=== PATIENT | male | born 1990 | race Hispanic/Latino ===

== ENCOUNTER 2020-05-01 14:50 | Emergency (ER) | payer SELFPAY ==
[2020-05-01 16:07] VITALS: BP 145/91
== END 2020-05-01 19:00 | disposition left against medical advice (07) ==
LOC: ED 14:50
DX: R45.851 Suicidal ideations (principal); Z53.21 Procedure and treatment not carried out due to patient leaving prior to being seen by health care provider

== ENCOUNTER 2020-05-02 01:11 | Emergency (ER) | payer SELFPAY | END 2020-05-02 02:15 | disposition left against medical advice (07) | LOC: ED 01:11 | DX: R44.0 Auditory hallucinations (principal); Z53.21 Procedure and treatment not carried out due to patient leaving prior to being seen by health care provider ==